=== PATIENT | female | born 1990 | race Caucasian/White ===

== ENCOUNTER 2023-04-22 07:58 | Emergency (ER) | payer OTHER, SELFPAY ==
[2023-04-22 07:59] VITALS: BP 129/87
[2023-04-22 08:30] VITALS: BMI 38.2
[2023-04-22 08:35] VITALS: BP 116/83
--- NOTE | 2023-04-22 08:35 | ED.GENMED ---
History of Present Illness
General
Chief Complaint: Medication Reaction
Source: patient
Exam Limitations: none
Time Seen by Provider: 04/22/23 08:10
Nursing documentation reviewed up to this point in time: agreed with
Travel History
Have you had any contact with someone who has COVID-19?: No
Do you have any symptoms of coronavirus? Fever > 100 degrees, chills, cough, shortness of breath, sore throat, loss of taste or smell, muscle aches, or headache?: No
History of Present Illness
History of Present Illness:
Patient presents ED secondary to persistent nausea sensation, along with muscle cramping, dizziness, and loss of appetite over the past 1 week. Patient states that she symptoms started shortly after taking Orlissa for endometriosis. Medication has
been discontinued since last week. However her symptoms have persisted. Denies fever or chills. Denies chest pain. Denies shortness of breath. Denies dizziness, but reports 'viselike' headache. Denies loss of sensation or weakness. Denies
vomiting or diarrhea. Denies previous history of similar symptoms. Of note, patient states that she is currently being tapered off methadone treatment.
Past History
Past History
ED Past Medical History: Psychiatric (Anxiety, Depression), Other (POTS, endometriosis) and Other ( opiate addiction on methadone since 2015)
ED Past Surgical History: Other (Ear tubes, laparoscopy for endometriosis February 2016)
Social History
Tobacco: Former smoker
Alcohol: None
Drug: Former user
Personal: Single
Living: with family
Employment: Employed
Family History
Family History: Other (Coronary disease, diabetes, hypertension); Negative Early CAD
Review of Systems
Review of Systems
Allergies reviewed?: Yes
All Other Systems: ROS reviewed and negative except as documented in HPI and ROS
Constitutional: Reports no symptoms
EENT: Reports no symptoms
Respiratory: Reports no symptoms
Cardiac: Reports no symptoms
ABD/GI: Reports nausea; Denies abdominal pain, vomiting or diarrhea
: Reports no symptoms
Musculoskeletal: Reports muscle pain
Skin: Reports no symptoms
Neurological: Reports headache; Denies dizzy
Phy Exam
Physical Exam
Physical Exam:
Physical Exam
General: mild distress, not acutely ill. afebrile
Head: nc/at. eomi
Neck: supple. no meningeal signs.
Heart: s1/s2 regular rate and rhythm, no murmur. equal radial pulses.
Lungs: no acute respiratory distress. clear bilaterally
Abdomen: normal bowel sounds. not tender.
Neuro: alert and oriented. no focal neurological deficits. normal speech.
Skin: no rash
Psychiatric: well kept. interactive and cooperative
Extremities: no edema. no calf tenderness.
Course
Orders/Labs/Results
Orders:
Orders
04/22/23 08:34
0.9% Sodium Chloride 1000 ml [Nss] 1,000 ml IV BOLUS
Lorazepam [Ativan] 1 mg IV NOW STA
Ondansetron Injectable [Zofran] 4 mg IV NOW STA
Pantoprazole [Protonix IV] 40 mg IV NOW STA
Test Result ONCE
04/22/23 09:00
Complete Blood Count/No Diff Urgent
04/22/23 09:02
Urinalysis Reflex To Culture Urgent
Date Specimen was Collected: 04/22/23
Time Specimen was Collected: 09:00
Urine Microscopic Reflex Cult Urgent
Urine Culture Urgent
TERENCE Source: U
Specimen Description:
Date Specimen was Collected: 04/22/23
Time Specimen was Collected: 09:00
04/22/23 09:47
Comprehensive Metabolic Panel Urgent
Creatine Phosphokinase Urgent
HCG, Serum Qualitative Screen Urgent
Lipase Urgent
Magnesium Urgent
TSH Urgent
Abnormal Lab Results
02/04/24 02/04/24 02/04/24
09:00 09:02 09:47
MCH 31.7 H pg
(27.0-31.0)
Chloride 108 H mmol/L
(98-107)
Urine Ketones 1+ A
(Negative)
Ur Occult Blood Reflex 1+ A
(Negative)
Urine RBC 3-6 A /HPF
(0-2)
Urine Bacteria (Reflex) Many A
(Negative)
04/22/23 09:00
04/22/23 09:47
Vital Signs
Initial and Last Documented VS:
Initial Vital Signs
Temp Pulse Resp BP Pulse Ox
97.3 F 90 18 129/87 98
04/22/23 07:59 04/22/23 07:59 04/22/23 07:59 04/22/23 07:59 04/22/23 07:59
Last Documented Vital Signs
Temp Pulse Resp BP Pulse Ox
98 F 102 26 94/61 97
04/22/23 11:33 04/22/23 11:00 04/22/23 11:00 04/22/23 11:00 04/22/23 09:13
MDM/Problems Addressed
MDM/Problems Addressed:
Pt with an unremarkable workup in ED and reports improvement in symptoms after treatment. Pt is otherwise, afebrile, hemodynamically stable, without any acute distress, at time of discharge.
*Critical Care Note
Total Time (30-74mins, 75-104mins- exclusive of procedures): Not Applicable
ED Attending Note
-
Portions of this chart may have been created with voice recognition software.� Occasional wrong word or��sound alike� substitutions may have occurred due to the inherent limitations of voice recognition software.
Discharge Plan
Departure
Patient Disposition: Home (Routine Discharge)
Date of Disposition: 04/22/23
Time of Disposition: 11:14
Patient with high blood pressure during this ER visit?: Yes
Condition: Good
Discharge Problem:
Adverse drug reaction
Instructions: Adverse Drug Reactions, Adult (DC)
Prescriptions:
New
ondansetron 4 mg Tablet,Disintegrating
4 mg PO TIDPRN PRN (Reason: nausea/vomiting) Qty: 12 0RF
lorazepam [Ativan] 0.5 mg tablet
0.5 mg PO TID PRN (Reason: anxiety) Qty: 7 0RF
No Action
famotidine [Pepcid AC] 10 MG tablet
10 mg PO PRN PRN (Reason: GERD)
L.acidoph, paracasei,B. lactis 1 EACH capsule
2 ea PO DAILY
metoprolol tartrate 25 MG tablet
25 mg PO HS
prochlorperazine maleate [Compazine] 10 mg Tablet
10 mg PO .Q1H UP TO 3 DOSES PRN (Reason: headaches)
duloxetine [Cymbalta] 30 mg Capsule,Delayed Release(Dr/Ec)
60 mg PO HS
methadone 5 mg Tablet
17 mg PO DAILY
methadone 5 mg Tablet
15 mg PO HS
lisdexamfetamine [Vyvanse] 40 mg Capsule
40 mg PO DAILY
Referrals:
Cuco Jimenez DO [Family Provider] -
Activity Restrictions/Additional Instructions:
As discussed, please follow-up with your primary care physician and [facility] physician for reevaluation. Your prescriptions have been sent electronically to [facility] pharmacy in [place].
Interventions
Interventions:
*Risk Screen - Suicide Last Done: 04/22/23 08:01
*General Assessment Last Done: 04/22/23 08:01
*Neglect/Abuse Screening Last Done: 04/22/23 08:01
ED- Fall Risk Assessment Last Done: 04/22/23 09:00
*ED COVID-19 Vaccine History Last Done: 04/22/23 08:01
*Nursing Disposition Last Done: 04/22/23 11:33
ED-Skin Assessment Last Done: 04/22/23 09:00
ED- Pulmonary Assessment Last Done: 04/22/23 09:00
ED-EENT Assessment Last Done: 04/22/23 09:00
Discharge Date and Time
Discharge Date/Time: 04/22/23 11:34
[2023-04-22] MEDS: NSS 1000 IV (08:58)
[2023-04-22] MEDS: ZOFRAN 4 MG IV (08:58)
[2023-04-22] MEDS: PROTONIX IV 40 MG IV (08:58)
[2023-04-22] MEDS: ATIVAN 1 MG IV (08:59)
[2023-04-22 09:13] VITALS: BP 130/75
[2023-04-22 09:21] LABS: Hematocrit 42.1 % (37.0-47.0); Hemoglobin 14.9 g/dL (12.0-16.0); Mean Corp Hgb Conc. 35.4 g/dL (33.0-37.0); Mean Corpuscular Hgb 31.7 pg (27.0-31.0); Mean Corpuscular Volume 89.6 fL (81.0-99.0); Mean Platelet Volume 10.4 fL (7.4-10.4); Platelet Count 222 10^3/uL (130-400); White Blood Cell Count 9.4 10^3/uL (4.8-10.8)
[2023-04-22 09:30] LABS: Urine Albumin Trace (Neg - Trace); Urine Bilirubin Negative (Negative); Urine Character Clear (Clear); Urine Color Yellow; Urine Glucose Negative (Negative); Urine Ketone 1+ (Negative); Urine Leukocyte Negative (Negative); Urine Nitrite Negative (Negative); Urine Occult Blood 1+ (Negative); Urine Specific Gravity 1.015 (<1.030); Urine Urobilinogen Negative (Neg - 1+)
[2023-04-22 09:46] LABS: Urine Bacteria Many (Negative); Urine Mucus Few; Urine Squamous Cell >30 /LPF (Few); Urine White Cell 0-2 /HPF (0-5)
[2023-04-22 10:00] VITALS: BP 108/61
[2023-04-22 10:13] LABS: HCG, Serum Qualitative Screen Negative
[2023-04-22 10:15] LABS: ALT (SGPT) 17 U/L (0-35); AST (SGOT) 19 U/L (14-36); Albumin 4.1 g/dl (3.5-5.0); Alkaline Phosphatase 89 U/L (38-126); Blood Urea Nitrogen 13 mg/dl (7-17); Carbon Dioxide 25 mmol/L (22-30); Chloride 108 mmol/L (98-107); Creatine Phosphokinase 31 U/L (30-135); Glucose 90 mg/dl (70-99); Lipase 30 U/L (23-300); Magnesium 2.1 mg/dl (1.6-2.3); Potassium 4.2 mmol/L (3.5-5.1); Sodium 136 mmol/L (135-145); Total Bilirubin 0.8 mg/dl (0.2-1.3); Total Protein 6.9 g/dl (6.3-8.2); eGFR > 60.00
[2023-04-22 10:44] LABS: TSH 0.62 uIU/ml (0.47-4.68)
[2023-04-22 11:00] VITALS: BP 94/61
== END 2023-04-22 11:34 | disposition home or self-care (01) ==
LOC: EMR 07:58
PROVIDERS: EMERGENCY PHYSICIAN Emergency Medicine; FAMILY PHYSICIAN Family Medicine
DX: R42 Dizziness and giddiness (principal); R11.0 Nausea; R51.9 Headache, unspecified; M79.10 Myalgia, unspecified site; R63.0 Anorexia; T50.995A Adverse effect of other drugs, medicaments and biological substances, initial encounter; N80.9 Endometriosis, unspecified; F32.A Depression, unspecified; F41.9 Anxiety disorder, unspecified; G90.A Postural orthostatic tachycardia syndrome [POTS]; Z87.891 Personal history of nicotine dependence; Z88.1 Allergy status to other antibiotic agents; Z88.2 Allergy status to sulfonamides; Z88.8 Allergy status to other drugs, medicaments and biological substances
CPT/HCPCS: 99284; 96374; 96375 ×2; 96361; 80053; 81003; 81015; 82550; 83690; 83735; 84443; 84703; 85027; 87086

== ENCOUNTER 2023-07-18 17:41 | Emergency (ER) | payer OTHER, SELFPAY ==
[2023-07-18 17:43] VITALS: BP 105/85; BMI 39.4
[2023-07-18 18:36] LABS: % Basophils 0.4 % (0-2); % Immature Granulocytes 0.2 % (0-0.5); % Lymphocytes 31.2 % (20.5-51.1); % Neutrophils 56.2 % (42.2-75.2); Absolute Eosinophils 0.2 10^3/uL (0-0.7); Absolute Lymphocytes 2.6 10^3/uL (1.2-3.4); Absolute Monocytes 0.8 10^3/uL (0.1-0.6); Absolute Neutrophils 4.6 10^3/uL (1.4-6.5); Hematocrit 38.7 % (37.0-47.0); Hemoglobin 13.4 g/dL (12.0-16.0); Mean Corp Hgb Conc. 34.6 g/dL (33.0-37.0); Mean Corpuscular Hgb 30.6 pg (27.0-31.0); Mean Corpuscular Volume 88.4 fL (81.0-99.0); Mean Platelet Volume 10.6 fL (7.4-10.4); Nucleated Red Blood Cells % 0 %; Platelet Count 216 10^3/uL (130-400); Red Blood Cell Count 4.38 10^6/uL (4.20-5.40); Red Cell Dist. Width 12.1 % (11.5-14.5); White Blood Cell Count 8.2 10^3/uL (4.8-10.8)
[2023-07-18 18:42] LABS: INR 1.06; PT 13.8 Sec (11.4-14.6)
[2023-07-18 18:46] LABS: D-Dimer < 0.27 ug/mlFEU (0.00-0.50)
[2023-07-18 18:52] LABS: ALT (SGPT) 26 U/L (0-35); AST (SGOT) 26 U/L (14-36); Albumin 4.1 g/dl (3.5-5.0); Alkaline Phosphatase 101 U/L (38-126); Blood Urea Nitrogen 17 mg/dl (7-17); Calcium 9.5 mg/dl (8.4-10.2); Carbon Dioxide 25 mmol/L (22-30); Chloride 105 mmol/L (98-107); Estimated Creatinine Clearance 124 ml/min; Glucose 114 mg/dl (70-99); Potassium 4.2 mmol/L (3.5-5.1); Sodium 135 mmol/L (135-145); Total Bilirubin 0.4 mg/dl (0.2-1.3); Total Protein 6.9 g/dl (6.3-8.2); eGFR > 60.00
[2023-07-18 18:55] LABS: Troponin I < 0.012 ng/ml
[2023-07-18 19:53] VITALS: BP 115/66
--- NOTE | 2023-07-18 23:11 | ED.GENMED ---
History of Present Illness
<Shirley Lennon NP - Last Filed: 07/18/23 23:16>
General
Chief Complaint: Chest Pain
Source: patient
Exam Limitations: none
Time Seen by Provider: 07/18/23 18:17
Nursing documentation reviewed up to this point in time: agreed with
Travel History
Have you had any contact with someone who has COVID-19?: No
Do you have any symptoms of coronavirus? Fever > 100 degrees, chills, cough, shortness of breath, sore throat, loss of taste or smell, muscle aches, or headache?: No
History of Present Illness
History of Present Illness:
Patient to ED with complaint of bilateral calf pain, chest pain. States calf pain started approx 4 days ago. Today noted chest pain. Sent to ED by PCP for eval. She was diagnosed wtih covid 10 days ago. She reports recovery was uneventful. Now
with calf pain
Past History
<Shirley Lennon NP - Last Filed: 07/18/23 23:16>
Past History
ED Past Medical History: Psychiatric (Anxiety, Depression), Other (POTS, endometriosis) and Other ( opiate addiction on methadone since 2015)
ED Past Surgical History: Other (Ear tubes, laparoscopy for endometriosis February 2016)
Social History
Tobacco: Former smoker
Alcohol: None
Drug: Former user
Personal: Single
Living: with family
Employment: Employed
Family History
Family History: Other (Coronary disease, diabetes, hypertension); Negative Early CAD
Review of Systems
<Shirley Lennon NP - Last Filed: 07/18/23 23:16>
Review of Systems
Allergies reviewed?: Yes
All Other Systems: ROS reviewed and negative except as documented in HPI and ROS
Constitutional: Reports no symptoms
EENT: Reports no symptoms
Respiratory: Reports no symptoms
Cardiac: Reports chest pain
ABD/GI: Reports no symptoms
: Reports no symptoms
Musculoskeletal: Reports other (bilateral calf pain)
Skin: Reports no symptoms
Neurological: Reports no symptoms
Psychiatric: Reports no symptoms
Phy Exam
<Shirley Lennon NP - Last Filed: 07/18/23 23:16>
General Physical Exam
General Presentation: well appearing and no apparent distress
General age: appears stated age
General Skin: warm and dry
General Habitus: normal
General Mental: alert
Cardiovascular Exam
Cardiovascular Exam: regular rate/rhythm and no edema
Pulmonary Exam
Pulmonary Exam: lungs clear, no respiratory distress and chest non tender
Musculoskeletal Exam
Musculoskeletal Exam: full ROM, neuro vasc intact and other (No redness or swelling to BLE.)
Skin Exam
Skin Exam: normal color, warm/dry and no rash
Psychiatric Exam
Psychiatric Exam: normal mood/affect
Scores
<Shirley Lennon NP - Last Filed: 07/18/23 23:16>
Heart Score for Chest Pain Patients
STEMI patient?: No
History: Slightly or Non-Suspicious
ECG: Normal
Age: </= 45 years
Risk Factors: No Risk Factors
Troponin: </= Normal Limit
Heart Score for Chest Pain Patients: 0
Heart Score Risk: 2.5% MACE over next 6 weeks
<Heidi Martinez DO - Last Filed: 07/18/23 23:56>
Heart Score for Chest Pain Patients
Heart Score for Chest Pain Patients: 0
Heart Score Risk: 2.5% MACE over next 6 weeks
Course
<Shirley Lennon NP - Last Filed: 07/18/23 23:16>
Orders/Labs/Results
Orders:
Orders
07/18/23 17:47
Electrocardiogram (*1) Urgent
Reason for Study: Chest Pain
EKG- Treatment ONCE
07/18/23 18:19
US Periph Venous LOWER Ext Hardeep Urgent
Comment:
Reason For Exam: BLE calf pain and swelling
07/18/23 18:25
Complete Blood Count/With Diff Urgent
Comprehensive Metabolic Panel Urgent
D-Dimer Urgent
Prothrombin Time Urgent
Troponin I Urgent
07/18/23 19:50
CR Chest - 2 Views Urgent
Comment:
Reason For Exam: pain
Abnormal Lab Results
07/18/23
18:25
MPV 10.6 H fL
(7.4-10.4)
Absolute Monos (auto) 0.8 H 10^3/uL
(0.1-0.6)
Monocytes % 10.0 H %
(1.7-9.3)
Glucose 114 H mg/dl
(70-99)
07/18/23 18:25
07/18/23 18:25
Vital Signs
Initial and Last Documented VS:
Initial Vital Signs
Temp Pulse Resp BP Pulse Ox
99.4 F 91 16 105/85 100
07/18/23 17:43 07/18/23 17:43 07/18/23 17:43 07/18/23 17:43 07/18/23 17:43
Last Documented Vital Signs
Temp Pulse Resp BP Pulse Ox
99.4 F 86 17 115/66 95
07/18/23 17:43 07/18/23 19:53 07/18/23 19:53 07/18/23 19:53 07/18/23 19:53
noe;Heidi Martinez, DO - Last Filed: 07/18/23 23:56>
Orders/Labs/Results
Orders:
Orders
07/18/23 17:47
Electrocardiogram (*1) Urgent
Reason for Study: Chest Pain
EKG- Treatment ONCE
07/18/23 18:19
US Periph Venous LOWER Ext Hardeep Urgent
Comment:
Reason For Exam: BLE calf pain and swelling
07/18/23 18:25
Complete Blood Count/With Diff Urgent
Comprehensive Metabolic Panel Urgent
D-Dimer Urgent
Prothrombin Time Urgent
Troponin I Urgent
07/18/23 19:50
CR Chest - 2 Views Urgent
Comment:
Reason For Exam: pain
Abnormal Lab Results
07/18/23
18:25
MPV 10.6 H fL
(7.4-10.4)
Absolute Monos (auto) 0.8 H 10^3/uL
(0.1-0.6)
Monocytes % 10.0 H %
(1.7-9.3)
Glucose 114 H mg/dl
(70-99)
07/18/23 18:25
07/18/23 18:25
Vital Signs
Initial and Last Documented VS:
Initial Vital Signs
Temp Pulse Resp BP Pulse Ox
99.4 F 91 16 105/85 100
07/18/23 17:43 07/18/23 17:43 07/18/23 17:43 07/18/23 17:43 07/18/23 17:43
Last Documented Vital Signs
Temp Pulse Resp BP Pulse Ox
99.4 F 86 17 115/66 95
07/18/23 17:43 07/18/23 19:53 07/18/23 19:53 07/18/23 19:53 07/18/23 19:53
<Shirley Lennon NP - Last Filed: 07/18/23 23:16>
*Radiology
Radiology exam reviewed: radiology read reviewed
*Pulse Oximetry
Patient hypoxic: no
*Critical Care Note
Total Time (30-74mins, 75-104mins- exclusive of procedures): Not Applicable
ED Attending Note
<Shirley Lennon NP - Last Filed: 07/18/23 23:16>
-
Portions of this chart may have been created with voice recognition software.� Occasional wrong word or��sound alike� substitutions may have occurred due to the inherent limitations of voice recognition software.
Discharge Plan
Departure
Patient Disposition: Home (Routine Discharge)
Date of Disposition: 07/18/23
Time of Disposition: 20:12
Patient with high blood pressure during this ER visit?: No
Condition: Good
Covid-19: Not Applicable
Discharge Problem:
Calf pain, Chest pain
Instructions: Chest Pain PCP Follow Up
Prescriptions:
No Action
famotidine [Pepcid AC] 10 MG tablet
10 mg PO PRN PRN (Reason: GERD)
L.acidoph, paracasei,B. lactis 1 EACH capsule
2 ea PO DAILY
metoprolol tartrate 25 MG tablet
25 mg PO HS
prochlorperazine maleate [Compazine] 10 mg Tablet
10 mg PO .Q1H UP TO 3 DOSES PRN (Reason: headaches)
duloxetine [Cymbalta] 30 mg Capsule,Delayed Release(Dr/Ec)
60 mg PO HS
methadone 5 mg Tablet
17 mg PO DAILY
methadone 5 mg Tablet
15 mg PO HS
lisdexamfetamine [Vyvanse] 40 mg Capsule
40 mg PO DAILY
ondansetron 4 mg Tablet,Disintegrating
4 mg PO TIDPRN PRN (Reason: nausea/vomiting) Qty: 12 0RF
lorazepam [Ativan] 0.5 mg tablet
0.5 mg PO TID PRN (Reason: anxiety) Qty: 7 0RF
Referrals:
Jessica Carnes CRNP [Family Provider] - Call in 1-3 days for appt
Activity Restrictions/Additional Instructions:
Return to the emergency department for any changes in/worsening of your symptoms.
Interventions
Interventions:
*Risk Screen - Suicide Last Done: 07/18/23 17:43
*General Assessment Last Done: 07/18/23 18:50
*Neglect/Abuse Screening Last Done: 07/18/23 17:43
*ED COVID-19 Vaccine History Last Done: 07/18/23 17:43
*Nursing Disposition Last Done: 07/18/23 20:24
ED- Cardiac Assessment Last Done: 07/18/23 18:50
Discharge Date and Time
Discharge Date/Time: 07/18/23 20:25
Print Language: LITHUANIAN
== END 2023-07-18 20:25 | disposition home or self-care (01) ==
LOC: EMR 17:41
PROVIDERS: Emergency Medicine; EMERGENCY PHYSICIAN Emergency Medicine; FAMILY PHYSICIAN Nurse Practitioner Family
DX: M79.662 Pain in left lower leg (principal); M79.661 Pain in right lower leg; R07.89 Other chest pain; F41.8 Other specified anxiety disorders; G90.A Postural orthostatic tachycardia syndrome [POTS]; Z82.49 Family history of ischemic heart disease and other diseases of the circulatory system; Z83.3 Family history of diabetes mellitus; Z87.891 Personal history of nicotine dependence
CPT/HCPCS: 99284; 71046; 80053; 84484; 85025; 85379; 85610; 93005; 93970

== ENCOUNTER 2025-01-02 17:37 | Emergency (ER) | payer OTHER, SELFPAY ==
[2025-01-02 18:05] LABS: Hematocrit 42.9 % (37.0-47.0); Hemoglobin 14.5 g/dL (12.0-16.0); Mean Corp Hgb Conc. 33.8 g/dL (33.0-37.0); Mean Corpuscular Volume 88.3 fL (81.0-99.0); Nucleated Red Blood Cells % 0 %; Platelet Count 236 10^3/uL (130-400); Red Cell Dist. Width 12.4 % (11.5-14.5)
[2025-01-02 18:20] LABS: ALT (SGPT) 29 U/L (0-35); AST (SGOT) 25 U/L (14-36); Albumin 4.5 g/dl (3.5-5.0); Alkaline Phosphatase 90 U/L (38-126); Blood Urea Nitrogen 14 mg/dl (7-17); Calcium 9.7 mg/dl (8.4-10.2); Carbon Dioxide 25 mmol/L (22-30); Chloride 104 mmol/L (98-107); Glucose 115 mg/dl (70-99); Potassium 4.0 mmol/L (3.5-5.1); Sodium 137 mmol/L (135-145); Total Protein 7.5 g/dl (6.3-8.2); eGFR > 60.00
[2025-01-02 18:33] LABS: Troponin I < 0.012 ng/ml
== END 2025-01-02 20:21 ==
LOC: EMR 17:37
PROVIDERS: Emergency Medicine
DX: Z53.21 Procedure and treatment not carried out due to patient leaving prior to being seen by health care provider (principal)
CPT/HCPCS: 80053; 84484; 85025; 93005

== ENCOUNTER 2025-01-04 06:51 | Emergency (ER) | payer OTHER, SELFPAY ==
[2025-01-04 06:52] VITALS: BP 115/76
[2025-01-04 07:23] LABS: Hematocrit 42.7 % (37.0-47.0); Hemoglobin 14.6 g/dL (12.0-16.0); Mean Corp Hgb Conc. 34.2 g/dL (33.0-37.0); Mean Corpuscular Volume 88.2 fL (81.0-99.0); Nucleated Red Blood Cells % 0 %; Platelet Count 241 10^3/uL (130-400); Red Cell Dist. Width 12.5 % (11.5-14.5)
[2025-01-04 07:54] LABS: ALT (SGPT) 26 U/L (0-35); AST (SGOT) 23 U/L (14-36); Albumin 4.3 g/dl (3.5-5.0); Alkaline Phosphatase 101 U/L (38-126); Blood Urea Nitrogen 11 mg/dl (7-17); Calcium 9.4 mg/dl (8.4-10.2); Carbon Dioxide 22 mmol/L (22-30); Chloride 107 mmol/L (98-107); Glucose 105 mg/dl (70-99); Potassium 4.6 mmol/L (3.5-5.1); Sodium 137 mmol/L (135-145); Total Protein 7.2 g/dl (6.3-8.2); eGFR > 60.00
[2025-01-04 07:57] LABS: Troponin I < 0.012 ng/ml
--- NOTE | 2025-01-04 08:34 | ED.GENMED ---
History of Present Illness
General
Chief Complaint: Heart Rate Problem
Time Seen by Provider: 01/04/25 08:08
History of Present Illness
History of Present Illness:
34-year-old female with history of postural orthostatic tachycardia syndrome, endometriosis, and polysubstance abuse currently on methadone presents to the emergency department for evaluation of racing heart, chest tightness, jaw and neck discomfort
as well as 'arm fatigue' and generalized weakness ongoing for the past 6 to 7 days. She went to urgent care for the symptoms 3 days ago and had negative COVID and flu test. She denies any current chest pain or dyspnea. No nausea or vomiting. No
recent medication changes. Denies any recent illicit substance use.
Past History
Past History
ED Past Medical History: Psychiatric (Anxiety, Depression), Other (POTS, endometriosis) and Other ( opiate addiction on methadone since 2015)
ED Past Surgical History: Other (Ear tubes, laparoscopy for endometriosis February 2016)
Social History
Tobacco: Former smoker
Alcohol: None
Drug: Former user
Personal: Single
Living: with family
Employment: Employed
Family History
Family History: Other (Coronary disease, diabetes, hypertension); Negative Early CAD
Review of Systems
Review of Systems
Allergies reviewed?: Yes
All Other Systems: ROS reviewed and negative except as documented in HPI and ROS
Phy Exam
Physical Exam
Physical Exam:
GEN: Well appearing, NAD, WDWN
HEENT: Oral mucosa moist, no scleral icterus
Cardiac: Regular rate and rhythm, no murmurs, radial pulses 2+ and symmetric
Lung: No respiratory distress, no tachypnea, lungs clear to auscultation bilaterally
MSK: No gross deformity or injuries
Skin: Good color, no pallor or jaundice, no rashes
Neuro: AO x3, moves all extremities freely
Psych: Calm, cooperative
Course
Orders/Labs/Results
Orders:
Orders
01/04/25 06:56
Electrocardiogram (*1) Urgent
Reason for Study: Chest Pain
EKG- Treatment ONCE
Test Result ONCE
01/04/25 07:12
Complete Blood Count/With Diff Urgent
Comprehensive Metabolic Panel Urgent
HCG, Serum Qualitative Screen Urgent
Comment: Notify provider if positive test present
Monotest Urgent
Comment: ADD ON
TSH Urgent
Comment: ADD ON
Troponin I Urgent
01/04/25 08:32
Add On- LAB Urgent
Tests Added?: tsh, mono test
01/04/25 08:59
Urinalysis Reflex To Culture Urgent
Date Specimen was Collected: 01/04/25
Time Specimen was Collected: 08:53
Urine Microscopic Reflex Cult Urgent
Urine Culture Urgent
TERENCE Source: U
Specimen Description:
Date Specimen was Collected: 01/04/25
Time Specimen was Collected: 08:53
Abnormal Lab Results
01/04/25 01/04/25
07:12 08:59
Absolute Monos (auto) 0.8 H 10^3/uL
(0.1-0.6)
Glucose 105 H mg/dl
(70-99)
Ur Occult Blood Reflex 2+ A
(Negative)
Leukocyte Esterase Rfl 2+ A
(Negative)
Urine Bacteria (Reflex) Many A
(Negative)
Urine Albumin (Reflex) 1+ A
(Neg - Trace)
01/04/25 07:12
01/04/25 07:12
Vital Signs
Initial and Last Documented VS:
Initial Vital Signs
Temp Pulse Resp BP Pulse Ox
98.2 F 82 16 115/76 97
01/04/25 06:52 01/04/25 06:52 01/04/25 06:52 01/04/25 06:52 01/04/25 06:52
Last Documented Vital Signs
Temp Pulse Resp BP Pulse Ox
98.2 F 85 16 124/78 100
01/04/25 06:52 01/04/25 10:24 01/04/25 10:24 01/04/25 10:24 01/04/25 10:24
MDM/Problems Addressed
MDM/Problems Addressed:
Patient has a myriad of complaints however no objective abnormalities on exam or labs. No evidence for UTI, clinically appears well, telemetry monitoring shows no evidence for dysrhythmia. No respiratory symptoms warranting chest x-ray. May be
self-limited viral syndrome
*Pulse Oximetry
SaO2: 97
Oxygen Mode of Delivery: Room air
Patient hypoxic: no
*Critical Care Note
Total Time (30-74mins, 75-104mins- exclusive of procedures): Not Applicable
ED Attending Note
-
Portions of this chart may have been created with voice recognition software.� Occasional wrong word or��sound alike� substitutions may have occurred due to the inherent limitations of voice recognition software.
Discharge Plan
Departure
Patient Disposition: Home (Routine Discharge)
Date of Disposition: 01/04/25
Time of Disposition: 10:22
Patient with high blood pressure during this ER visit?: No
Discharge Problem:
Fatigue
Instructions: Fatigue - ED (DC)
Prescriptions:
No Action
famotidine [Pepcid AC] 10 MG tablet
10 mg PO PRN PRN (Reason: GERD)
L.acidoph,paracasei,B.animalis 1 EACH capsule
2 ea PO DAILY
metoprolol tartrate 25 MG tablet
25 mg PO HS
prochlorperazine maleate [Compazine] 10 mg Tablet
10 mg PO .Q1H UP TO 3 DOSES PRN (Reason: headaches)
duloxetine [Cymbalta] 30 mg Capsule,Delayed Release(Dr/Ec)
60 mg PO HS
methadone 5 mg Tablet
17 mg PO DAILY
methadone 5 mg Tablet
15 mg PO HS
lisdexamfetamine [Vyvanse] 40 mg Capsule
40 mg PO DAILY
ondansetron 4 mg Tablet,Disintegrating
4 mg PO TIDPRN PRN (Reason: nausea/vomiting) Qty: 12 0RF
lorazepam [Ativan] 0.5 mg tablet
0.5 mg PO TID PRN (Reason: anxiety) Qty: 7 0RF
Referrals:
NONE,* [Family Provider, Internal Medicine]
Interventions
Interventions:
*Risk Screen - Suicide Last Done: 01/04/25 06:52
*General Assessment Last Done: 01/04/25 10:24
*Neglect/Abuse Screening Last Done: 01/04/25 06:52
*ED- Fall Risk Assessment Last Done: 01/04/25 10:24
*Nursing Disposition Last Done: 01/04/25 10:24
ED- Cardiac Assessment Last Done: 01/04/25 09:57
ED- Pulmonary Assessment Last Done: 01/04/25 09:57
Discharge Date and Time
Discharge Date/Time: 01/04/25 10:25
Print Language: ICELANDIC
[2025-01-04 09:01] VITALS: BP 101/59
[2025-01-04 09:02] LABS: HCG, Serum Qualitative Screen Negative
[2025-01-04 09:37] LABS: Urine Character Clear (Clear)
[2025-01-04 10:00] VITALS: BP 92/68
[2025-01-04 10:17] LABS: TSH 1.63 uIU/ml (0.47-4.68)
[2025-01-04 10:19] LABS: Urine Squamous Cell >30 /LPF (Few)
[2025-01-04 10:20] LABS: Urine Red Blood Cell 0-2 /HPF (0-2); Urine Urothelial Cell 0-2 /LPF (FEW)
[2025-01-04 10:24] VITALS: BP 124/78
== END 2025-01-04 10:25 | disposition home or self-care (01) ==
LOC: EMR 06:51
PROVIDERS: Physician Assistant; EMERGENCY PHYSICIAN Emergency Medicine
DX: R00.0 Tachycardia, unspecified (principal); R53.83 Other fatigue; F41.9 Anxiety disorder, unspecified; G90.A Postural orthostatic tachycardia syndrome [POTS]; F11.20 Opioid dependence, uncomplicated; F32.A Depression, unspecified; Z82.49 Family history of ischemic heart disease and other diseases of the circulatory system; Z83.3 Family history of diabetes mellitus; Z87.891 Personal history of nicotine dependence
CPT/HCPCS: 99283; 80053; 81003; 81015; 84443; 84484; 84703; 85025; 86308; 87086; 93005